=== PATIENT | male | born 1955 | race Two or more races ===

== ENCOUNTER → 2016-06-22 | Outpatient (CLI) | payer OTHER ==
--- NOTE | 2016-06-22 15:40 | RAD ---
Renal ultrasound, 06/22/2016: History: Prostatic hyperplasia The right kidney measures 11.4 cm in length while the left kidney measures 11.5 cm. There is a 1.2 cm cyst arising from the lower pole of the right kidney. Both kidneys demonstrate mild cortical scarring. There is no evidence of hydronephrosis. No abnormal perinephric process is seen. Limited views of the urinary bladder demonstrate an enlarged prostate gland impressing upon the bladder base. The prostate gland is heterogeneous with a small internal cystic component. IMPRESSION: 1. Small right renal cyst. 2. Mild bilateral renal cortical scarring. 3. Heterogeneous prostatic enlargement
== END | disposition home or self-care (01) ==
LOC: US 10:46
PROVIDERS: ATTEND Nurse Practitioner Occupational Health
DX: N40.0 Benign prostatic hyperplasia without lower urinary tract symptoms (principal)
CPT/HCPCS: 76770

== ENCOUNTER 2017-08-29 18:55 | Inpatient (IN) | payer OTHER ==
[~2017-08-29 18:55] MED LIST: TIROFIBAN-0.9% SODIUM CHLORIDE 12.5 MG/250 ML BAG. IV
[2017-08-29] MEDS ORDERED: ONDANSETRON PF 4 MG/2 ML VIAL. IV (19:15)
[2017-08-29] MEDS ORDERED: BISACODYL 10 MG SUPP.RECT. PR (19:15)
[2017-08-29] MEDS ORDERED: ZOLPIDEM 5 MG TABLET. PO (19:15)
[2017-08-29] MEDS ORDERED: PROCHLORPERAZINE 25 MG SUPP.RECT. PR (19:15)
[2017-08-29] MEDS ORDERED: ACETAMINOPHEN 325 MG TABLET. PO (19:15)
[2017-08-29] MEDS ORDERED: oxyCODONE IR 5 MG TABLET PO (19:15)
[2017-08-29] MEDS ORDERED: PROCHLORPERAZINE 10 MG/2 ML VIAL. IV (19:15)
[2017-08-29] MEDS ORDERED: IBUPROFEN 200 MG TABLET. PO (19:15)
[2017-08-29] MEDS ORDERED: CALCIUM CARBONATE 500 MG TAB.CHEW PO (19:15)
[2017-08-29] MEDS ORDERED: MORPHINE SULFATE 4 MG/ML DISP.SYRIN. IV (19:15)
[2017-08-29] MEDS ORDERED: MAGNESIUM HYDROXIDE 2,400 MG/30 ML ORAL.SUSP. PO (19:15)
[2017-08-29] MEDS ORDERED: HEPARIN for IV BOLUS 10,000 UNIT/10 ML VIAL. IV (19:30)
[2017-08-29] MEDS: MORPHINE SULFATE 4 MG/ML DISP.SYRIN. IV (19:56)
[2017-08-29] MEDS: HEPARIN 25,000UTS/500ML PREMIX 500 ML IV (20:10)
[2017-08-29] MEDS: HEPARIN for IV BOLUS 10,000 UNIT/10 ML VIAL. IV ×2 (20:12→23:12)
[2017-08-29] MEDS ORDERED: LIDOCAINE 2% 20 ML VIAL. (20:59)
[2017-08-29] MEDS ORDERED: IODIXANOL 320 MG/ML 100 ML VIAL. ×2 (20:59→22:25)
[2017-08-29] MEDS: SIMVASTATIN 20 MG TABLET PO (21:00)
[2017-08-29] MEDS: DOCUSATE SODIUM 100 MG CAPSULE. PO (21:00)
[2017-08-29] MEDS: TAMSULOSIN 0.4 MG CAP.ER.24H. PO (21:00)
[2017-08-29] MEDS ORDERED: MIDAZOLAM HCL/PF 2 MG/2 ML VIAL. (21:24)
[2017-08-29] MEDS ORDERED: fentaNYL PF VIAL 100 MCG/2 ML VIAL (21:24)
[2017-08-29] MEDS ORDERED: HEPARIN for IV BOLUS 10,000 UNIT/10 ML VIAL. (21:25)
[2017-08-29] MEDS ORDERED: VERAPAMIL 5 MG/2 ML VIAL. (21:26)
[2017-08-29] MEDS ORDERED: NITROGLYCERIN 200 MCG/2 ML SYRINGE FOR CATH/VASC LAB. (21:26)
[2017-08-29] MEDS ORDERED: TIROFIBAN 12.5MG -0.9% NS 250 ML IV ×2 (22:01→22:30)
[2017-08-29] MEDS: HEPARIN for IV BOLUS 10,000 UNIT/10 ML VIAL. IART (22:30)
[2017-08-29] MEDS ORDERED: PRASUGREL 10 MG TABLET. (23:04)
[2017-08-29] MEDS: fentaNYL PF VIAL 100 MCG/2 ML VIAL IV (23:09)
[2017-08-29] MEDS: MIDAZOLAM HCL/PF 2 MG/2 ML VIAL. IV (23:09)
[2017-08-29] MEDS: IODIXANOL 320 MG/ML 100 ML VIAL. IART (23:10)
[2017-08-29] MEDS: LIDOCAINE 2% 20 ML VIAL. IJ (23:11)
[2017-08-29] MEDS: PRASUGREL 10 MG TABLET. PO (23:12)
[2017-08-29] MEDS: VERAPAMIL 5 MG/2 ML VIAL. IART (23:13)
[2017-08-29] MEDS: NITROGLYCERIN 200 MCG/2 ML SYRINGE FOR CATH/VASC LAB. IART (23:13)
[2017-08-29] MEDS: IV NORMAL SALINE 1000ML BAG 1,000 ML IV (23:15)
[2017-08-29] MEDS ORDERED: fentaNYL PF VIAL 100 MCG/2 ML VIAL IV (23:30)
[2017-08-29] MEDS ORDERED: 0.9 % SODIUM CHLORIDE 10 ML DISP.SYRIN. IV (23:30)
[2017-08-29] MEDS ORDERED: NITROGLYCERIN SUBLINGUAL 0.4 MG BOTTLE OF 25. SL (23:30)
[2017-08-29] MEDS ORDERED: AMIODARONE 150 MG in IV DEXTROSE 5% 100 ML IV (23:30)
[2017-08-29] MEDS ORDERED: ATROPINE 0.5 MG/5 ML DISP.SYRINGE. IV (23:30)
[2017-08-30] MEDS: ACETAMINOPHEN 325 MG TABLET. PO (05:23)
[2017-08-30 06:22] LABS: ALBUMIN 3.4 g/dL (3.4-5.0); ALBUMIN/GLOBULIN RATIO 1.1 (1.0-1.7); ALK PHOS 96 U/L (46-116); ALT (SGPT) 75 U/L (16-63); ANION GAP 10 (6-14); AST (SGOT) 438 U/L (15-37); BLOOD UREA NITROGEN 13 mg/dL (8-26); BUN/CREATININE RATIO 16 (6-20); CALCIUM 8.3 mg/dL (8.5-10.1); CARBON DIOXIDE 23 mmol/L (21-32); CHLORIDE 107 mmol/L (98-107); CHOLESTEROL 157 mg/dL (0-200); CREATININE 0.8 mg/dL (0.7-1.3); DIRECT BILIRUBIN 0.2 mg/dL (0.0-0.2); GLUCOSE 113 mg/dL (70-99); HDLC 46 mg/dL (40-60); LDLC 89 mg/dL (0-100); MAGNESIUM 1.9 mg/dL (1.8-2.4); NON-HDL CHOLESTEROL 111 mg/dL (0-129); PHOSPHORUS 3.8 mg/dL (2.6-4.7); POTASSIUM 3.9 mmol/L (3.5-5.1); SODIUM 140 mmol/L (136-145); TOTAL BILIRUBIN 0.9 mg/dL (0.2-1.0); TOTAL PROTEIN 6.6 g/dL (6.4-8.2); TRIGLYCERIDES 109 mg/dL (0-150); VLDLC 22 mg/dL (0-40)
[2017-08-30 06:26] LABS: CHOLESTEROL/HDL RATIO 3.4
[2017-08-30 06:53] LABS: ADD MAN DIFF? NO
[2017-08-30 06:58] LABS: BASO # 0.1 x10^3/uL (0.0-0.2); BASO % 1 % (0-3); EOS % 0 % (0-3); HEMOGLOBIN 14.1 g/dL (13.0-17.5); LYMPH # 1.6 x10^3/uL (1.0-4.8); LYMPH % 15 % (24-48); MEAN CORPUSCULAR HEMOGLOBIN 31 pg (25-35); MEAN CORPUSCULAR HGB CONC 34 g/dL (31-37); MEAN CORPUSCULAR VOLUME 90 fL (79-100); MONO # 1.1 x10^3/uL (0.0-1.1); MONO % 10 % (0-9); NEUT # 8.3 x10^3uL (1.8-7.7); NEUT % 74 % (31-73); PLATELET COUNT 176 x10^3/uL (140-400); RED BLOOD COUNT 4.56 x10^6/uL (4.30-5.70); RED CELL DISTRIBUTION WIDTH 12.5 % (11.5-14.5); WHITE BLOOD COUNT 11.2 x10^3/uL (4.0-11.0)
[2017-08-30 07:08] LABS: INR 1.1 (0.8-1.1); PROTHROMBIN TIME PATIENT 13.6 SEC (11.7-14.0)
[2017-08-30 07:21] LABS: CKMB INDEX 9.3 % (0-4); CKMB MASS 342.9 ng/mL (0.0-3.6); CREATINE KINASE 3669 U/L (39-308)
[2017-08-30] MEDS: PRASUGREL 10 MG TABLET. PO (08:29)
[2017-08-30] MEDS: PANTOPRAZOLE 40 MG TABLET.DR. PO (08:29)
[2017-08-30] MEDS: CITALOPRAM 10 MG TABLET. PO (08:29)
[2017-08-30] MEDS: DOCUSATE SODIUM 100 MG CAPSULE. PO ×2 (08:29→21:10)
[2017-08-30] MEDS: FINASTERIDE 5 MG TABLET. PO (08:29)
[2017-08-30] MEDS: ASPIRIN ENTERIC COATED 81 MG TABLET.DR. PO (08:29)
[2017-08-30] MEDS: LISINOPRIL 10 MG TABLET PO (08:29)
[2017-08-30] MEDS: METOPROLOL SUCC 24HR ER 25 MG TAB.ER.24H. PO (08:30)
[2017-08-30] MEDS: TAMSULOSIN 0.4 MG CAP.ER.24H. PO (21:10)
[2017-08-30] MEDS: ATORVASTATIN CALCIUM 40 MG TABLET. PO (21:10)
[2017-08-31] MEDS: CITALOPRAM 10 MG TABLET. PO (07:45)
[2017-08-31] MEDS: DOCUSATE SODIUM 100 MG CAPSULE. PO (07:45)
[2017-08-31] MEDS: PRASUGREL 10 MG TABLET. PO (07:45)
[2017-08-31] MEDS: FINASTERIDE 5 MG TABLET. PO (07:45)
[2017-08-31] MEDS: PANTOPRAZOLE 40 MG TABLET.DR. PO (07:45)
[2017-08-31] MEDS: ASPIRIN ENTERIC COATED 81 MG TABLET.DR. PO (07:45)
[2017-08-31] MEDS: LISINOPRIL 10 MG TABLET PO (07:48)
[2017-08-31] MEDS: METOPROLOL SUCC 24HR ER 25 MG TAB.ER.24H. PO (07:48)
== END 2017-08-31 16:15 | disposition home or self-care (01) | DRG 246 ==
LOC: 2 SOUTH 18:55
PROC: 027136Z Dilation of Coronary Artery, Two Arteries with Three Drug-eluting Intraluminal Devices, Percutaneous Approach (ICD-10-PCS; principal; 2017-08-30)
PROC: 4A023N7 Measurement of Cardiac Sampling and Pressure, Left Heart, Percutaneous Approach (ICD-10-PCS; 2017-08-30)
PROC: B2151ZZ Fluoroscopy of Left Heart using Low Osmolar Contrast (ICD-10-PCS; 2017-08-30)
PROC: B2111ZZ Fluoroscopy of Multiple Coronary Arteries using Low Osmolar Contrast (ICD-10-PCS; 2017-08-30)
DX: I21.4 Non-ST elevation (NSTEMI) myocardial infarction (principal); I50.43 Acute on chronic combined systolic (congestive) and diastolic (congestive) heart failure; E78.5 Hyperlipidemia, unspecified; I11.0 Hypertensive heart disease with heart failure; I25.119 Atherosclerotic heart disease of native coronary artery with unspecified angina pectoris; F32.9 Major depressive disorder, single episode, unspecified; N40.0 Benign prostatic hyperplasia without lower urinary tract symptoms; Z79.899 Other long term (current) drug therapy; Z82.49 Family history of ischemic heart disease and other diseases of the circulatory system; Z98.61 Coronary angioplasty status
CPT/HCPCS: 36415; 80053; 80061; 82248; 82553; 83735; 84100; 84484; 85025; 85610; 92928; 92929; 93306; 93458; 97161-GP; 97165-GO; 99152; 99153; C1713; C1725; C1769; C1887; C1892; J1644; J2250; J2270; J3010; J3490; J7030

== ENCOUNTER → 2019-09-10 | Outpatient (CLI) | payer OTHER ==
[2017-08-31 11:00] VITALS: BP 93/49
[~2019-09-10] MED LIST changes: +ASPI-612 PO; +ATOR40TA59 PO; +CITA10TA4 PO; +FINA5TAB4 PO; +LISI10TA2 PO; +METO-239 PO; +OMEP40CA45 PO; +PRAS10TA9 PO; +PRAV20TA2 PO; +TAMS0.4C2 PO; -TIROFIBAN-0.9% SODIUM CHLORIDE 12.5 MG/250 ML BAG. IV
--- NOTE | 2019-09-10 12:10 | CARD ---
MR#: [id number] Date of Study: 09/10/2019 Ordering Physician: SONIDO MOISE, Referring Physician: SONIDO MOISE, Tech: Kiley Portillo [facility] APPROVED REPORT EXAM: Two-dimensional and M-mode echocardiogram with Doppler and color Doppler. Other Information Quality : Good INDICATION CVA/TIA 2D DIMENSIONS RVDd3.0 (2.9-3.5cm)Left Atrium(2D)3.7 (1.6-4.0cm) IVSd0.6 (0.7-1.1cm)Aortic Root(2D)2.8 (2.0-3.7cm) LVDd5.5 (3.9-5.9cm)LVOT Diameter2.1 (1.8-2.4cm) PWd1.1 (0.7-1.1cm)LVDs4.1 (2.5-4.0cm) FS (%) 25.7 %SV73.5 ml LVEF(%)55.0 (>50%) Aortic Valve AoV Peak Liu.137.5cm/sAoV VTI23.9cm AO Peak GR.7.6mmHgLVOT Peak Liu.113.0cm/s AO Mean GR.4mmHgAVA (VMAX)2.78cm2 IRENE (VTI)3.30cm2 Mitral Valve MV E Ddsdmepc32.9cm/sMV DECEL [id number] MV A Heznjbyi49.6cm/sE/A Ratio0.7 Pulmonary Vein S1 Kmjaykfb73.7cm/sD2 Vfbromge25.3cm/s LEFT VENTRICLE The left ventricle is normal size. There is normal left ventricular wall thickness. The left ventricu lar systolic function is normal. The Ejection Fraction is 55-60%. There is normal LV segmental wall m otion. Transmitral Doppler flow pattern is Grade I-abnormal relaxation pattern. RIGHT VENTRICLE The right ventricle is normal size. The right ventricular systolic function is normal. ATRIA The left atrium size is normal. The right atrium size is normal. The interatrial septum is intact wit h no evidence for an atrial septal defect or patent foramen ovale as noted on 2-D or Doppler imaging. AORTIC VALVE The aortic valve is mildly thickened but opens well. Doppler and Color Flow revealed no significant a ortic regurgitation. There is no significant aortic valvular stenosis. MITRAL VALVE The mitral valve is normal in structure and function. There is no evidence of mitral valve prolapse. There is no mitral valve stenosis. Doppler and Color-flow revealed trace mitral regurgitation. TRICUSPID VALVE The tricuspid valve is normal in structure and function. Doppler and Color Flow revealed no tricuspid valve regurgitation noted. There is no tricuspid valve stenosis. PULMONIC VALVE The pulmonic valve is not well visualized. Doppler and Color Flow revealed trace pulmonic valvular re gurgitation. There is no pulmonic valvular stenosis. GREAT VESSELS The aortic root is normal in size. The ascending aorta is normal in size. The IVC is normal in size a nd collapses >50% with inspiration. PERICARDIAL EFFUSION There is no evidence of significant pericardial effusion. Critical Notification Critical Value: No <Conclusion> The left ventricular systolic function is normal. The Ejection Fraction is 55-60%. There is normal LV segmental wall motion. Transmitral Doppler flow pattern is Grade I-abnormal relaxation pattern. Trace mitral regurgitation. There is no evidence of significant pericardial effusion. Signed by : Irvin Moran, Electronically Approved : 09/10/2019 12:09:56
--- NOTE | 2019-09-10 12:34 | RAD ---
MR#: [id number] Date of Study: 09/10/2019 Ordering Physician: SONIDO MOISE, Referring Physician: SONIDO MOISE, Tech: Leo Lopez MBA, RDMS, RVT, RDCS, RTR APPROVED REPORT Patient Location: OUT-PATIENT Laterality:Bilateral Indications CVA/TIA: Doppler Spectral Velocity Analysis Right Left pCCA 105/19 cm/spCCA 154/24 cm/s mCCA 105/21 cm/smCCA 93/19 cm/s dCCA 100/24 cm/sdCCA 90/22 cm/s Bulb 66/16 cm/sBulb 87/22 cm/s ECA 150/ cm/sECA 120/ cm/s pICA 77/26 cm/spICA 85/28 cm/s Nasima 88/32 cm/smICA 76/30 cm/s dICA 97/32 cm/sdICA 83/32 cm/s Vert. 32/ cm/sVert. 53/ cm/s Subcl. 195/ cm/sSubcl. 133/ cm/s ICA/CCA 0.92ICA/CCA 0.55 Findings Grayscale images of the bilateral common carotid, internal and external carotid vessels demonstrates mild luminal irregularities without any focal obstructive plaque. Spectral waveforms and color Doppler involving the bilateral internal carotid arteries did not demons trate any focal stenosis. Overall 0 to less than 50% stenosis based on velocity criteria. Bilateral vertebral velocities are antegrade. No high-grade external carotid arterial disease noted. Bilateral subclavian velocities are grossly within normal limits. Critical Notification Critical Value: No <Conclusion> 1. No significant bilateral carotid occlusive disease Signed by : Sonido Moise, Electronically Approved : 09/10/2019 12:34:27
== END | disposition home or self-care (01) ==
LOC: ECHO 10:10
PROVIDERS: ATTEND Internal Medicine Cardiovascular Disease
DX: G45.9 Transient cerebral ischemic attack, unspecified (principal)
CPT/HCPCS: 93306; 93880

== ENCOUNTER → 2019-09-17 | Outpatient (CLI) | payer OTHER ==
[2017-08-31 11:00] VITALS: BP 93/49
--- NOTE | 2019-09-17 11:20 | RAD ---
PQRS Compliance Statement: One or more of the following individualized dose reduction techniques were utilized for this examination: 1. Automated exposure control 2. Adjustment of the mA and/or kV according to patient size 3. Use of iterative reconstruction technique ANGIOGRAPHY NECK WO CONTRAST, ANGIOGRAPHY BRAIN WO CONTRAST 09/17/2019 10:30 AM INDICATION: History of TIA COMPARISON: Carotid Doppler 09/10/2019 TECHNIQUE: 2-D muei-ye-cyiryv magnetic resonance angiography of the cervical and intracranial vasculature was obtained. Maximum intensity projection images are provided. Stenosis calculations for CT, MR, and conventional angiography are based upon measurements of the distal ICA diameter in accordance with the NASCET methodology. Stenosis calculations for carotid ultrasound studies are derived from validated velocity criteria which are known to correlate with the NASCET methodology. FINDINGS: There is a normal three-vessel aortic arch. Origins of the brachiocephalic vessels are widely patent. Right common carotid artery is normal in course and caliber. No significant atherosclerotic changes are identified at the right carotid bifurcation. No significant stenosis of the right cervical internal carotid artery. External carotid artery is widely patent. Left common carotid artery is normal in course and caliber. No significant atherosclerotic changes are identified at the left carotid bifurcation. No significant stenosis of the left cervical internal carotid artery. External carotid artery is widely patent. Antegrade flow is identified within the vertebral arteries with the proximal bilateral vertebral artery not well visualized. Intracranial segments of internal carotid arteries are normal in course and caliber. There is mild calcified atheromatous plaque involving the cavernous segments without significant stenosis. Origins of the ophthalmic segments of the internal carotid artery appears widely patent. Middle cerebral arteries are normal in course and caliber with patent sylvian branches. Anterior cerebral arteries are normal in course and caliber. Anterior communicating artery is visualized. Basilar artery is normal in course and caliber. Superior cerebellar arteries are widely patent. 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 Posterior cerebral arteries are normal in course and caliber. There is no aneurysm, vascular malformation or high-grade stenosis/large vessel occlusion involving [place] of [place]. Superior sagittal sinus is patent. IMPRESSION: 1. There is no evidence for hemodynamically significant carotid stenosis. Antegrade flow within the vertebral arteries with the proximal vertebral artery is not well visualized bilaterally. Vertebral arteries at the skull base and limited in evaluation. 2. There is no aneurysm, vascular malformation or high-grade stenosis/large vessel occlusion involving the [place]. Electronically signed by: Arline Barnett MD (09/17/2019 11:17 AM) [facility]
--- NOTE | 2019-09-17 11:20 | RAD ---
PQRS Compliance Statement: One or more of the following individualized dose reduction techniques were utilized for this examination: 1. Automated exposure control 2. Adjustment of the mA and/or kV according to patient size 3. Use of iterative reconstruction technique ANGIOGRAPHY NECK WO CONTRAST, ANGIOGRAPHY BRAIN WO CONTRAST 09/17/2019 10:30 AM INDICATION: History of TIA COMPARISON: Carotid Doppler 09/10/2019 TECHNIQUE: 2-D ldnd-im-iqeepu magnetic resonance angiography of the cervical and intracranial vasculature was obtained. Maximum intensity projection images are provided. Stenosis calculations for CT, MR, and conventional angiography are based upon measurements of the distal ICA diameter in accordance with the NASCET methodology. Stenosis calculations for carotid ultrasound studies are derived from validated velocity criteria which are known to correlate with the NASCET methodology. FINDINGS: There is a normal three-vessel aortic arch. Origins of the brachiocephalic vessels are widely patent. Right common carotid artery is normal in course and caliber. No significant atherosclerotic changes are identified at the right carotid bifurcation. No significant stenosis of the right cervical internal carotid artery. External carotid artery is widely patent. Left common carotid artery is normal in course and caliber. No significant atherosclerotic changes are identified at the left carotid bifurcation. No significant stenosis of the left cervical internal carotid artery. External carotid artery is widely patent. Antegrade flow is identified within the vertebral arteries with the proximal bilateral vertebral artery not well visualized. Intracranial segments of internal carotid arteries are normal in course and caliber. There is mild calcified atheromatous plaque involving the cavernous segments without significant stenosis. Origins of the ophthalmic segments of the internal carotid artery appears widely patent. Middle cerebral arteries are normal in course and caliber with patent sylvian branches. Anterior cerebral arteries are normal in course and caliber. Anterior communicating artery is visualized. Basilar artery is normal in course and caliber. Superior cerebellar arteries are widely patent. 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 Posterior cerebral arteries are normal in course and caliber. There is no aneurysm, vascular malformation or high-grade stenosis/large vessel occlusion involving [place] of [place]. Superior sagittal sinus is patent. IMPRESSION: 1. There is no evidence for hemodynamically significant carotid stenosis. Antegrade flow within the vertebral arteries with the proximal vertebral artery is not well visualized bilaterally. Vertebral arteries at the skull base and limited in evaluation. 2. There is no aneurysm, vascular malformation or high-grade stenosis/large vessel occlusion involving the [place] of [place]. Electronically signed by: Arline Barnett MD (09/17/2019 11:17 AM) [facility]
== END | disposition home or self-care (01) ==
LOC: MRI 08:49
PROVIDERS: ATTEND Internal Medicine Cardiovascular Disease
DX: G45.9 Transient cerebral ischemic attack, unspecified (principal)
CPT/HCPCS: 70544; 70547